=== PATIENT | male | born 1955 | race Caucasian/White ===

== ENCOUNTER 2021-06-18 11:48 | Inpatient (IN) ==
[2021-06-18] MEDS ORDERED: Ondansetron ODT 4 MG TAB.RAPDIS SL PRN (14:56)
[2021-06-18] MEDS ORDERED: MOM Conc 10 ML UD.LIQ PO PRN (14:56)
[2021-06-18] MEDS ORDERED: Naloxone 0.4 MG/ML INJ IVP PRN (14:56)
[2021-06-18] MEDS ORDERED: Perflutren Lipid Microsphere 1.3 ML in 0.9 % Sodium Chloride 8.7 ML IVP PRN (14:58)
[2021-06-18] MEDS ORDERED: Dextrose Gel 15 GM/37.5 ML TUBE PO PRN ×2 (15:00)
[2021-06-18] MEDS ORDERED: Azithromycin 500 MG in 0.9 % Sodium Chloride 250 ML IVPB SCH (15:00)
[2021-06-18] MEDS ORDERED: *HR* Dextrose 50 % in Water (Syg) 50 ML SYRINGE IVP PRN (15:00)
[2021-06-18] MEDS ORDERED: D5% in Water 1,000 ML IVC PRN (15:00)
[2021-06-18] MEDS ORDERED: *HR* Heparin 5,000 UNIT/ML VIAL IVP ONE (15:12)
[2021-06-18] MEDS ORDERED: *HR* Heparin 5,000 UNIT/ML VIAL IVP PRN (15:12)
[2021-06-18] MEDS ORDERED: Heparin 25,000 UNIT/250 ML 25,000 UNIT/250 ML IV.SOLN IVC SCH (15:15)
[2021-06-18 16:48] LABS: Hematocrit 41.8 % (37.5-50.1); Hemoglobin 13.3 g/dL (12.9-16.9); Mean Corpuscular HGB Conc 31.8 g/dL (31.6-35.5); Mean Corpuscular Hemoglobin 30.2 pg (28.0-33.3); Mean Corpuscular Volume 94.8 fL (83.0-100.0); Mean Platelet Volume 11.1 fL (9.4-12.4); Platelet Count 197 K/mcL (140-400); Red Blood Count 4.41 M/mcL (4.19-5.50); White Blood Count 12.8 K/mcL (4.3-11.1)
[2021-06-18] MEDS: Insulin LISPRO 300 UNITS/3 ML VIAL SUBQ SCH ×2 (16:49→21:54)
[2021-06-18 16:55] LABS: Heparin anti-factor XA UFH < 0.04 IU/mL (0.30-0.70)
[2021-06-18 16:56] LABS: INR 1.1; Prothrombin Time 12.6 Seconds (9.4-12.1)
[2021-06-18 17:16] LABS: Estimated Average Glucose 186 mg/dl; Hemoglobin A1C 8.1 %
[2021-06-18] MEDS ORDERED: Isovue-370 500 ML BOTTLE PO ONE (18:06)
[2021-06-18] MEDS: Pantoprazole 40 MG VIAL IVP SCH (18:26)
[2021-06-18] MEDS: Insulin DETEMIR 100 UNIT/ML X5UNITS SUBQ SCH (21:54)
[2021-06-19] MEDS: Albumin 25% 12.5gm/50mL 12.5 GM/50 ML IV.SOLN IVPB SCH ×3 (00:34→17:21)
[2021-06-19] MEDS: *HR* Heparin 5,000 UNIT/ML VIAL IVP PRN ×2 (00:35→09:16)
[2021-06-19] MEDS ORDERED: *HR* Enoxaparin 40 MG/0.4 ML SYRINGE SQ SCH (06:00)
[2021-06-19 06:03] LABS: Basophils % 0.1 %; Hematocrit 42.3 % (37.5-50.1); Hemoglobin 13.3 g/dL (12.9-16.9); Immature Granulocytes % 0.9 % (0-4); Lymphocytes # 0.3 K/mcL (0.6-4.6); Lymphocytes % 2.6 %; Mean Corpuscular HGB Conc 31.4 g/dL (31.6-35.5); Mean Corpuscular Hemoglobin 30.2 pg (28.0-33.3); Mean Corpuscular Volume 95.9 fL (83.0-100.0); Mean Platelet Volume 10.8 fL (9.4-12.4); Monocytes # 0.7 K/mcL (0.0-1.3); Monocytes % 6.4 %; Neutrophils # 10.3 K/mcL (1.6-8.9); Platelet Count 199 K/mcL (140-400); Red Blood Count 4.41 M/mcL (4.19-5.50); Red Cell Distribution Width 13.9 % (11.5-14.5); White Blood Count 11.5 K/mcL (4.3-11.1)
[2021-06-19 07:01] LABS: Ferritin 386 ng/mL (20-250); Lactate Dehydrogenase 500 Units/L (140-271)
[2021-06-19] MEDS: amLODIPine 5 MG TABLET PO SCH (08:30)
[2021-06-19] MEDS: Metoprolol XL (24 HR) Succ 50 MG TAB.ER.24H PO SCH (08:30)
[2021-06-19] MEDS: Pantoprazole 40 MG VIAL IVP SCH (08:30)
[2021-06-19] MEDS: Isosorbide MONOnitrate (24 HR) 30 MG TAB.ER.24H PO SCH (08:30)
[2021-06-19] MEDS: Aspirin Enteric Coated 81 MG Tablet PO SCH (08:31)
[2021-06-19] MEDS: cefTRIAXone 1,000 MG in 0.9 % Sodium Chloride Mini Bag 100 ML IVPB SCH (08:32)
[2021-06-19] MEDS: Dexamethasone Sodium Phos/PF 10 MG/ML VIAL IVP SCH (08:43)
[2021-06-19] MEDS: Insulin LISPRO 300 UNITS/3 ML VIAL SUBQ SCH ×4 (08:58→21:39)
[2021-06-19] MEDS ORDERED: Metoprolol XL (24 HR) Succ 50 MG TAB.ER.24H PO SCH (09:00)
[2021-06-19] MEDS ORDERED: Furosemide 40 MG/4 ML VIAL IVP SCH (15:00)
[2021-06-19] MEDS: *HR* LORazepam 0.5 MG TABLET PO PRN (17:19)
[2021-06-19] MEDS: *HR* Heparin 5,000 UNIT/ML VIAL SQ SCH (21:38)
[2021-06-19] MEDS: Insulin DETEMIR 100 UNIT/ML X5UNITS SUBQ SCH (21:38)
[2021-06-19 23:18] LABS: Calcium 8.5 mg/dL (8.6-10.3); Uric Acid 10.1 mg/dL (2.3-7.6)
[2021-06-19 23:21] LABS: Bilirubin,Urine Negative (Negative); Blood,Urine Small (Negative); Clarity,Urine Clear (Clear); Color,Urine Yellow (Yellow); Glucose,Urine (UA) >=1000 mg/dL (Normal); Ketones,Urine Negative (Negative); Leukocyte Esterase,Urine Negative (Negative); Nitrite,Urine Negative (Negative); PH,Urine 5.5 pH Units (5.0-8.0); Protein,Urine >=300 mg/dL (Neg-Trace); Urobilinogen,Urine Normal (Normal)
[2021-06-19 23:25] LABS: Complement C3 114 mg/dL (87-200)
[2021-06-19 23:25] LABS: Bacteria,Urine Few per hpf (None-Few); RBC,Urine 0-3 per hpf (0-3); Squamous Epithelial Cell,Urine Few per hpf (None-Few); WBC,Urine 0-3 per hpf (0-3)
[2021-06-20] MEDS: Melatonin 3 MG TABLET PO PRN ×2 (00:17→22:10)
[2021-06-20] MEDS: *HR* LORazepam 0.5 MG TABLET PO PRN ×2 (00:17→22:10)
[2021-06-20] MEDS ORDERED: 0.9 % Sodium Chloride 250 ML ONE (00:24)
[2021-06-20] MEDS: Albumin 25% 12.5gm/50mL 12.5 GM/50 ML IV.SOLN IVPB SCH (00:41)
[2021-06-20] MEDS: *HR* Heparin 5,000 UNIT/ML VIAL SQ SCH ×3 (06:45→22:10)
[2021-06-20] MEDS: Insulin LISPRO 300 UNITS/3 ML VIAL SUBQ SCH ×4 (10:10→22:11)
[2021-06-20 13:39] LABS: Calcium 8.8 mg/dL (8.6-10.3); Potassium 3.9 mEq/L (3.5-5.1)
[2021-06-20] MEDS: Isosorbide MONOnitrate (24 HR) 30 MG TAB.ER.24H PO SCH (14:18)
[2021-06-20] MEDS: Aspirin Enteric Coated 81 MG Tablet PO SCH (14:18)
[2021-06-20] MEDS: Azithromycin 250 MG TABLET PO SCH (14:19)
[2021-06-20] MEDS: amLODIPine 5 MG TABLET PO SCH (14:19)
[2021-06-20] MEDS: Metoprolol XL (24 HR) Succ 50 MG TAB.ER.24H PO SCH (14:19)
[2021-06-20] MEDS: Pantoprazole 40 MG VIAL IVP SCH (14:19)
[2021-06-20] MEDS: Dexamethasone Sodium Phos/PF 10 MG/ML VIAL IVP SCH (14:19)
[2021-06-20] MEDS: cefTRIAXone 1,000 MG in 0.9 % Sodium Chloride Mini Bag 100 ML IVPB SCH (14:20)
[2021-06-20] MEDS ORDERED: *HR* LORazepam 2 MG/ML VIAL IVP ONE (15:52)
[2021-06-20] MEDS: Furosemide 40 MG/4 ML VIAL IVP SCH (16:04)
[2021-06-20] MEDS: Dexmedetomidine HCl 400 MCG/100 ML MLS IVC SCH ×2 (17:25→22:20)
[2021-06-20] MEDS: Insulin DETEMIR 100 UNIT/ML X5UNITS SUBQ SCH (22:10)
[2021-06-21] MEDS: Dexmedetomidine HCl 400 MCG/100 ML MLS IVC SCH ×6 (03:07→23:20)
[2021-06-21] MEDS: *HR* Heparin 5,000 UNIT/ML VIAL SQ SCH ×3 (05:05→22:32)
[2021-06-21 07:02] LABS: Basophils % 0.2 %; Hematocrit 38.3 % (37.5-50.1); Hemoglobin 12.3 g/dL (12.9-16.9); Immature Granulocytes % 0.8 % (0-4); Lymphocytes # 0.3 K/mcL (0.6-4.6); Lymphocytes % 2.4 %; Mean Corpuscular HGB Conc 32.1 g/dL (31.6-35.5); Mean Corpuscular Hemoglobin 30.1 pg (28.0-33.3); Mean Corpuscular Volume 93.9 fL (83.0-100.0); Mean Platelet Volume 11.1 fL (9.4-12.4); Monocytes # 0.7 K/mcL (0.0-1.3); Monocytes % 6.4 %; Neutrophils # 9.9 K/mcL (1.6-8.9); Platelet Count 168 K/mcL (140-400); Red Blood Count 4.08 M/mcL (4.19-5.50); Red Cell Distribution Width 13.8 % (11.5-14.5); Segmented Neutrophils % 90.2 %
[2021-06-21 07:24] LABS: Calcium 8.6 mg/dL (8.6-10.3); Potassium 4.4 mEq/L (3.5-5.1)
[2021-06-21] MEDS: Insulin LISPRO 300 UNITS/3 ML VIAL SUBQ SCH ×4 (07:39→22:34)
[2021-06-21] MEDS: Furosemide 40 MG/4 ML VIAL IVP SCH ×2 (07:40→16:30)
[2021-06-21] MEDS: Dexamethasone Sodium Phos/PF 10 MG/ML VIAL IVP SCH (07:41)
[2021-06-21] MEDS: Pantoprazole 40 MG VIAL IVP SCH (07:41)
[2021-06-21] MEDS: cefTRIAXone 1,000 MG in 0.9 % Sodium Chloride Mini Bag 100 ML IVPB SCH (07:42)
[2021-06-21] MEDS: amLODIPine 5 MG TABLET PO SCH (08:02)
[2021-06-21] MEDS: Isosorbide MONOnitrate (24 HR) 30 MG TAB.ER.24H PO SCH (08:02)
[2021-06-21] MEDS: Aspirin Enteric Coated 81 MG Tablet PO SCH (08:02)
[2021-06-21] MEDS: Azithromycin 250 MG TABLET PO SCH (08:03)
[2021-06-21] MEDS: Metoprolol XL (24 HR) Succ 50 MG TAB.ER.24H PO SCH (08:03)
[2021-06-21] MEDS: *HR* LORazepam 2 MG/ML VIAL IM PRN (10:10)
[2021-06-21] MEDS: Albumin 25% 12.5gm/50mL 12.5 GM/50 ML IV.SOLN IVPB SCH (14:37)
[2021-06-21] MEDS: Insulin DETEMIR 100 UNIT/ML X5UNITS SUBQ SCH (22:32)
[2021-06-22] MEDS: Dexmedetomidine HCl 400 MCG/100 ML MLS IVC SCH ×6 (02:34→21:05)
[2021-06-22 04:08] LABS: VBG HCO3 28 mEq/L (21-27); VBG PCO2 54 mmHg (41-51); VBG PH 7.32 pH Units (7.32-7.42); VBG PO2 53 mmHg (25-50)
[2021-06-22 04:09] LABS: Hematocrit 40.9 % (37.5-50.1); Hemoglobin 13.3 g/dL (12.9-16.9); Immature Platelets 6.1 % (1.1-6.1); Mean Corpuscular HGB Conc 32.5 g/dL (31.6-35.5); Mean Corpuscular Hemoglobin 29.9 pg (28.0-33.3); Mean Corpuscular Volume 91.9 fL (83.0-100.0); Mean Platelet Volume 11.1 fL (9.4-12.4); Red Blood Count 4.45 M/mcL (4.19-5.50); Red Cell Distribution Width 13.4 % (11.5-14.5); White Blood Count 13.4 K/mcL (4.3-11.1)
[2021-06-22 04:17] LABS: Albumin/Globulin Ratio 0.9 (1.1-2.2); Bilirubin,Direct 0.3 mg/dL (0.0-0.2); Bilirubin,Indirect 0.6 mg/dL (0.0-1.0); Bilirubin,Total 0.9 mg/dL (0.3-1.0); Calcium 8.7 mg/dL (8.6-10.3); Globulin 3.3 g/dL (2.4-3.5); Magnesium 2.5 mg/dL (1.6-2.6); Phosphorous 5.3 mg/dL (2.7-4.5); Potassium 4.4 mEq/L (3.5-5.1); Total Protein 6.3 g/dL (6.4-8.9)
[2021-06-22] MEDS: *HR* Heparin 5,000 UNIT/ML VIAL SQ SCH (05:53)
[2021-06-22] MEDS: cefTRIAXone 1,000 MG in 0.9 % Sodium Chloride Mini Bag 100 ML IVPB SCH (08:31)
[2021-06-22] MEDS: Dexamethasone Sodium Phos/PF 10 MG/ML VIAL IVP SCH (08:36)
[2021-06-22] MEDS: Pantoprazole 40 MG VIAL IVP SCH (08:36)
[2021-06-22] MEDS: Furosemide 40 MG/4 ML VIAL IVP SCH ×2 (08:37→17:31)
[2021-06-22] MEDS: Insulin LISPRO 300 UNITS/3 ML VIAL SUBQ SCH ×4 (08:40→21:39)
[2021-06-22] MEDS: Aspirin Enteric Coated 81 MG Tablet PO SCH (09:15)
[2021-06-22] MEDS: amLODIPine 5 MG TABLET PO SCH (09:15)
[2021-06-22] MEDS: Isosorbide MONOnitrate (24 HR) 30 MG TAB.ER.24H PO SCH (09:15)
[2021-06-22] MEDS: Metoprolol XL (24 HR) Succ 50 MG TAB.ER.24H PO SCH (09:16)
[2021-06-22] MEDS: Azithromycin 250 MG TABLET PO SCH (09:16)
[2021-06-22] MEDS: *HR* LORazepam 2 MG/ML VIAL IVP PRN (09:21)
[2021-06-22] MEDS ORDERED: *HR* Heparin 5,000 UNIT/ML VIAL IVP PRN ×2 (11:19)
[2021-06-22] MEDS ORDERED: *HR* Heparin 5,000 UNIT/ML VIAL IVP ONE (11:19)
[2021-06-22] MEDS ORDERED: Heparin 25,000UNIT/250ML 1/2NS 25,000 UNIT/250 ML IV.SOLN IVC SCH (11:30)
[2021-06-22] MEDS: Heparin 25,000 UNIT/250 ML 25,000 UNIT/250 ML IV.SOLN IVC SCH (15:31)
[2021-06-22] MEDS: Insulin DETEMIR 100 UNIT/ML X5UNITS SUBQ SCH (21:40)
[2021-06-22] MEDS ORDERED: OLANZapine 10 MG VIAL IM ONE ×2 (21:56→22:02)
[2021-06-23] MEDS: Dexmedetomidine HCl 400 MCG/100 ML MLS IVC SCH ×5 (00:33→20:02)
[2021-06-23 05:58] LABS: Basophils % 0.4 %; Nucleated Red Blood Cells 0.1 /100 WBC (0)
[2021-06-23 06:00] LABS: Basophils # 0.1 K/mcL (0.0-0.2); Hematocrit 45.5 % (37.5-50.1); Immature Granulocytes % 1.8 % (0-4); Immature Platelets 6.4 % (1.1-6.1); Lymphocytes # 0.4 K/mcL (0.6-4.6); Lymphocytes % 2.3 %; Mean Corpuscular Hemoglobin 29.5 pg (28.0-33.3); Mean Corpuscular Volume 89.6 fL (83.0-100.0); Mean Platelet Volume 10.8 fL (9.4-12.4); Monocytes % 6.5 %; Neutrophils # 14.2 K/mcL (1.6-8.9); Platelet Count 129 K/mcL (140-400); Red Blood Count 5.08 M/mcL (4.19-5.50); Red Cell Distribution Width 13.7 % (11.5-14.5); White Blood Count 15.9 K/mcL (4.3-11.1)
[2021-06-23] MEDS: *HR* LORazepam 2 MG/ML VIAL IVP PRN (06:08)
[2021-06-23 06:17] LABS: Calcium 8.9 mg/dL (8.6-10.3); Magnesium 2.6 mg/dL (1.6-2.6); Phosphorous 5.1 mg/dL (2.7-4.5); Potassium 4.3 mEq/L (3.5-5.1)
[2021-06-23] MEDS: Dexamethasone Sodium Phos/PF 10 MG/ML VIAL IVP SCH (10:08)
[2021-06-23] MEDS: cefTRIAXone 1,000 MG in 0.9 % Sodium Chloride Mini Bag 100 ML IVPB SCH (10:20)
[2021-06-23] MEDS: Furosemide 40 MG/4 ML VIAL IVP SCH ×2 (10:21→16:56)
[2021-06-23] MEDS ORDERED: *HR* Labetalol 20 MG/4 ML SYRINGE IVP ONE (10:22)
[2021-06-23] MEDS: Heparin 25,000 UNIT/250 ML 25,000 UNIT/250 ML IV.SOLN IVC SCH ×2 (10:31→20:03)
[2021-06-23] MEDS: Pantoprazole 40 MG VIAL IVP SCH (10:33)
[2021-06-23] MEDS: Insulin LISPRO 300 UNITS/3 ML VIAL SUBQ SCH ×4 (10:36→20:04)
[2021-06-23] MEDS: Aspirin Enteric Coated 81 MG Tablet PO SCH (10:46)
[2021-06-23] MEDS: amLODIPine 5 MG TABLET PO SCH (10:46)
[2021-06-23] MEDS: Metoprolol XL (24 HR) Succ 50 MG TAB.ER.24H PO SCH (10:46)
[2021-06-23] MEDS: Isosorbide MONOnitrate (24 HR) 30 MG TAB.ER.24H PO SCH (10:46)
[2021-06-23 13:33] LABS: ANA IgG by ELISA NONE DETECTED (None Detected); Serine Protease-3 Antibody 0 AU/mL (0-19)
[2021-06-23] MEDS: Azithromycin 250 MG TABLET PO SCH (17:32)
[2021-06-23] MEDS: Ranolazine 500 MG TAB.ER.12H PO SCH (20:03)
[2021-06-23] MEDS: Insulin DETEMIR 100 UNIT/ML X5UNITS SUBQ SCH (20:03)
[2021-06-23 22:59] LABS: Lambda Qnt Free Light Chains 65.1 mg/L (5.71-26.30)
[2021-06-24] MEDS ORDERED: OLANZapine 10 MG VIAL IM ONE (00:45)
[2021-06-24 05:28] LABS: Basophils # 0.1 K/mcL (0.0-0.2); Basophils % 0.3 %; Hematocrit 44.9 % (37.5-50.1); Hemoglobin 14.6 g/dL (12.9-16.9); Immature Granulocytes % 1.5 % (0-4); Lymphocytes # 0.2 K/mcL (0.6-4.6); Lymphocytes % 1.4 %; Mean Corpuscular HGB Conc 32.5 g/dL (31.6-35.5); Mean Corpuscular Hemoglobin 29.7 pg (28.0-33.3); Mean Corpuscular Volume 91.3 fL (83.0-100.0); Mean Platelet Volume 12.3 fL (9.4-12.4); Monocytes # 0.8 K/mcL (0.0-1.3); Monocytes % 4.7 %; Neutrophils # 15.5 K/mcL (1.6-8.9); Platelet Count 128 K/mcL (140-400); Red Blood Count 4.92 M/mcL (4.19-5.50); Red Cell Distribution Width 14.2 % (11.5-14.5); Segmented Neutrophils % 92.1 %; White Blood Count 16.9 K/mcL (4.3-11.1)
[2021-06-24 05:59] LABS: Calcium 8.8 mg/dL (8.6-10.3); Magnesium 2.7 mg/dL (1.6-2.6); Phosphorous 5.7 mg/dL (2.7-4.5); Potassium 4.5 mEq/L (3.5-5.1)
[2021-06-24] MEDS: Metoprolol XL (24 HR) Succ 50 MG TAB.ER.24H PO SCH (07:49)
[2021-06-24] MEDS: Isosorbide MONOnitrate (24 HR) 30 MG TAB.ER.24H PO SCH (07:49)
[2021-06-24] MEDS: amLODIPine 5 MG TABLET PO SCH (07:49)
[2021-06-24] MEDS: Aspirin Enteric Coated 81 MG Tablet PO SCH (07:49)
[2021-06-24] MEDS: Ranolazine 500 MG TAB.ER.12H PO SCH ×2 (07:49→22:57)
[2021-06-24] MEDS: Dexmedetomidine HCl 400 MCG/100 ML MLS IVC SCH ×4 (09:26→20:41)
[2021-06-24] MEDS: Insulin LISPRO 300 UNITS/3 ML VIAL SUBQ SCH ×3 (09:44→18:58)
[2021-06-24] MEDS: Pantoprazole 40 MG VIAL IVP SCH (09:45)
[2021-06-24] MEDS: Dexamethasone Sodium Phos/PF 10 MG/ML VIAL IVP SCH (09:49)
[2021-06-24] MEDS ORDERED: Insulin DETEMIR 100 UNIT/ML X5UNITS SUBQ SCH ×2 (10:00→21:00)
[2021-06-24 10:46] LABS: Kappa Qnt Free Light Chains 115.92 mg/L (3.30-19.40)
[2021-06-24] MEDS ORDERED: D10% in Water 500 ML IVC PRN (10:56)
[2021-06-24] MEDS: *HR* LORazepam 2 MG/ML VIAL IVP PRN (11:29)
[2021-06-24 13:07] LABS: Heparin anti-factor XA UFH 0.31 IU/mL (0.30-0.70)
[2021-06-24] MEDS ORDERED: Clinimix 5%-20% SOLUTION 2,000 ML with MVI, adult with vitamin K 10 ML, Calcium Gluco... IVC SCH (17:00)
[2021-06-24] MEDS: Heparin 25,000 UNIT/250 ML 25,000 UNIT/250 ML IV.SOLN IVC SCH (21:27)
[2021-06-24] MEDS: *HR* LORazepam 2 MG/ML VIAL IM PRN (22:56)
[2021-06-25 01:35] LABS: Basophils # 0.1 K/mcL (0.0-0.2); Basophils % 0.3 %; Hematocrit 43.3 % (37.5-50.1); Hemoglobin 14.1 g/dL (12.9-16.9); Immature Granulocytes % 1.5 % (0-4); Lymphocytes # 0.3 K/mcL (0.6-4.6); Lymphocytes % 1.5 %; Mean Corpuscular HGB Conc 32.6 g/dL (31.6-35.5); Mean Corpuscular Hemoglobin 30.7 pg (28.0-33.3); Mean Corpuscular Volume 94.3 fL (83.0-100.0); Mean Platelet Volume 12.7 fL (9.4-12.4); Monocytes # 0.9 K/mcL (0.0-1.3); Monocytes % 5.1 %; Platelet Count 153 K/mcL (140-400); Red Blood Count 4.59 M/mcL (4.19-5.50); Red Cell Distribution Width 14.5 % (11.5-14.5); Segmented Neutrophils % 91.6 %; White Blood Count 17.5 K/mcL (4.3-11.1)
[2021-06-25] MEDS: Insulin LISPRO 300 UNITS/3 ML VIAL SUBQ SCH ×4 (01:44→17:40)
[2021-06-25 01:53] LABS: Albumin 2.5 g/dL (3.5-5.7); Albumin/Globulin Ratio 0.8 (1.1-2.2); Bilirubin,Total 0.6 mg/dL (0.3-1.0); Calcium 8.6 mg/dL (8.6-10.3); Globulin 3.3 g/dL (2.4-3.5); Potassium 5.3 mEq/L (3.5-5.1); Total Protein 5.8 g/dL (6.4-8.9)
[2021-06-25 01:54] LABS: Calcium 8.5 mg/dL (8.6-10.3); Magnesium 2.9 mg/dL (1.6-2.6); Phosphorous 6.3 mg/dL (2.7-4.5); Potassium 5.3 mEq/L (3.5-5.1)
[2021-06-25] MEDS: Dexmedetomidine HCl 400 MCG/100 ML MLS IVC SCH ×5 (06:55→21:21)
[2021-06-25] MEDS ORDERED: Haloperidol Lactate 5 MG/ML VIAL IVP ONE (07:40)
[2021-06-25] MEDS: Dexamethasone Sodium Phos/PF 10 MG/ML VIAL IVP SCH (08:24)
[2021-06-25] MEDS: Pantoprazole 40 MG VIAL IVP SCH (08:24)
[2021-06-25] MEDS: Aspirin Enteric Coated 81 MG Tablet PO SCH (08:37)
[2021-06-25] MEDS: Metoprolol XL (24 HR) Succ 50 MG TAB.ER.24H PO SCH (08:37)
[2021-06-25] MEDS: amLODIPine 5 MG TABLET PO SCH (08:37)
[2021-06-25] MEDS: Isosorbide MONOnitrate (24 HR) 30 MG TAB.ER.24H PO SCH (08:37)
[2021-06-25] MEDS: Insulin DETEMIR 100 UNIT/ML X5UNITS SUBQ SCH ×3 (12:24→22:11)
[2021-06-25] MEDS: Heparin 25,000 UNIT/250 ML 25,000 UNIT/250 ML IV.SOLN IVC SCH (13:08)
[2021-06-25] MEDS: Ranolazine 500 MG TAB.ER.12H PO SCH (14:25)
[2021-06-25] MEDS ORDERED: VITAMIN K IVC SCH (17:00)
[2021-06-25] MEDS ORDERED: [UNRECOGNIZED DRUG - OTHER] IVC SCH (17:00)
[2021-06-25] MEDS ORDERED: CLINIMIX IVC SCH (17:00)
[2021-06-25] MEDS ORDERED: MVI IVC SCH (17:00)
[2021-06-25] MEDS: *HR* LORazepam 2 MG/ML VIAL IVP PRN (22:12)
[2021-06-26] MEDS: Dexmedetomidine HCl 400 MCG/100 ML MLS IVC SCH ×8 (01:02→23:44)
[2021-06-26] MEDS: Ranolazine 500 MG TAB.ER.12H PO SCH ×3 (02:12→19:35)
[2021-06-26] MEDS: Insulin LISPRO 300 UNITS/3 ML VIAL SUBQ SCH ×5 (02:19→23:46)
[2021-06-26 02:25] LABS: Albumin 2.4 g/dL (3.5-5.7); Albumin/Globulin Ratio 0.7 (1.1-2.2); Bilirubin,Total 0.5 mg/dL (0.3-1.0); Calcium 8.8 mg/dL (8.6-10.3); Globulin 3.3 g/dL (2.4-3.5); Phosphorous 5.7 mg/dL (2.7-4.5); Potassium 5.5 mEq/L (3.5-5.1); Total Protein 5.7 g/dL (6.4-8.9)
[2021-06-26] MEDS: Heparin 25,000 UNIT/250 ML 25,000 UNIT/250 ML IV.SOLN IVC SCH ×3 (03:02→17:27)
[2021-06-26 07:01] LABS: Hematocrit 44.2 % (37.5-50.1); Mean Corpuscular HGB Conc 29.4 g/dL (31.6-35.5); Mean Corpuscular Hemoglobin 29.5 pg (28.0-33.3); Mean Corpuscular Volume 100.2 fL (83.0-100.0); Mean Platelet Volume 12.1 fL (9.4-12.4); Platelet Count 116 K/mcL (140-400); Red Blood Count 4.41 M/mcL (4.19-5.50); Red Cell Distribution Width 14.6 % (11.5-14.5); White Blood Count 14.8 K/mcL (4.3-11.1)
[2021-06-26] MEDS: Aspirin Enteric Coated 81 MG Tablet PO SCH (07:54)
[2021-06-26] MEDS: Isosorbide MONOnitrate (24 HR) 30 MG TAB.ER.24H PO SCH (07:54)
[2021-06-26] MEDS: amLODIPine 5 MG TABLET PO SCH (07:55)
[2021-06-26] MEDS: Metoprolol XL (24 HR) Succ 50 MG TAB.ER.24H PO SCH (07:55)
[2021-06-26] MEDS ORDERED: Haloperidol Lactate 5 MG/ML VIAL IVP ONE ×2 (08:04→10:57)
[2021-06-26 08:19] LABS: Alpha 2 Globulin (PEP) 1.24 g/dL (0.48-1.05)
[2021-06-26] MEDS: Pantoprazole 40 MG VIAL IVP SCH (08:19)
[2021-06-26] MEDS: Insulin DETEMIR 100 UNIT/ML X5UNITS SUBQ SCH (08:20)
[2021-06-26] MEDS: Dexamethasone Sodium Phos/PF 10 MG/ML VIAL IVP SCH (08:32)
[2021-06-26] MEDS ORDERED: Insulin Human Regular 10 UNIT in 0.9 % Sodium Chloride 10 ML IV ONE (09:42)
[2021-06-26] MEDS ORDERED: Insulin DETEMIR 100 UNIT/ML X5UNITS SUBQ ONE (10:32)
[2021-06-26 12:03] LABS: IFE Reflexed NOT DONE
[2021-06-26] MEDS ORDERED: D5% in Water 1,000 ML IVC SCH (12:45)
[2021-06-26] MEDS ORDERED: Clinimix 5%-20% SOLUTION 2,000 ML with MVI, adult with vitamin K 10 ML, Sodium Acetat... IVC SCH (17:00)
[2021-06-26] MEDS ORDERED: Fat Emulsion 250 ML IVPB SCH (17:00)
[2021-06-26] MEDS ORDERED: Heparin 25,000 UNIT/250 ML 25,000 UNIT/250 ML IV.SOLN IVC SCH (17:00)
[2021-06-26] MEDS ORDERED: Insulin DETEMIR 100 UNIT/ML X5UNITS SUBQ SCH ×2 (21:00)
[2021-06-27 02:53] VITALS: BP 157/64; PULSE 96; TEMP 97.4
[2021-06-27] MEDS: Dexmedetomidine HCl 400 MCG/100 ML MLS IVC SCH (03:04)
[2021-06-27] MEDS ORDERED: *HR* Metoprolol 5 MG/5 ML VIAL IVP PRN (03:24)
[2021-06-27] MEDS ORDERED: Morphine Sulfate 2 MG/ML SYRINGE IVP PRN (04:38)
[2021-06-27 06:14] VITALS: O2SAT 80
== END 2021-06-27 10:00 | disposition expired | DRG 177 ==
LOC: 3NENU → SUATTDRO 14:56
PROVIDERS: ADMIT Hospitalist; ATTEND Internal Medicine